=== PATIENT | female | born 1995 | race Caucasian/White ===

== ENCOUNTER 2018-01-06 18:42 | Inpatient (IN) | payer OTHER ==
[~2018-01-06] VITALS: Ht 165.1 cm; Wt 64.4 kg
[2018-01-06] MEDS ORDERED: BCPILLS PO (19:25)
[2018-01-06] MEDS ORDERED: FLUO40CA8 PO (19:25)
[2018-01-06 19:29] LABS: BASO % 0.5 %; BASO ABS # 0.02 K/uL (0-0.2); HEMATOCRIT 41.8 % (37-47); IG# 0.01 K/uL (0.00-0.02); LYMPH ABS # 1.47 K/uL (1.2-3.4); MEAN CELL VOLUME 93.1 fL (80-100); MEAN CORPUSCULAR HEMOGLOBIN 31.2 pg (25-34); MEAN CORPUSCULAR HGB CONC 33.5 g/dl (32-36); MONO % 2.9 %; MONO ABS # 0.12 K/uL (0.11-0.59); NEUT % 61.4 %; NEUT ABS # 2.58 K/uL (1.4-6.5); PLATELET COUNT 469 K/uL (130-400); RED CELL DISTRIBUTION WIDTH CV 13.1 % (11.5-14.5); RED CELL DISTRIBUTION WIDTH SD 44.6 fL (36.4-46.3)
--- NOTE | 2018-01-06 19:32 | EMERGENCY ROOM VISIT NOTE ---
History Report prepared by Jose: Maeve Ovalle Under the Supervision of: Dr. Vale León D.O. 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 The patient has a history of depression and is on Prozac. She has been under increased stress recently with her home life. She has been feeling low. Today, she drank alcohol to try to feel numb. She reports that she normally does not do this. She locked herself in the bathroom today with the intention of cutting herself. Her friends were able to open the door and stop her. They brought her to the ED. She reports that she has tried to cut herself in the past to relieve stress. She has a therapist that she sees monthly. She is on Prozac. Her Prozac dose was increased recently. She feels that the Prozac help keeps her more level. She has some cuts to her hands and knees, but does not remember falling. She denies any headache, neck pain, arm pain, hip pain, abdominal pain, leg pain, rib pain, or shoulder pain. She does not think she injured her teeth. 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 Review of Systems See HPI for pertinent positives & negatives. A total of 10 systems reviewed and were otherwise negative. Past Medical & Surgical Medical Problems: (1) Depression Family History Depression Social History Smoking Status: Never Smoker Occupation Status: [employer] student Current/Historical Medications Scheduled Control Pills ( Control Pills), 1 TAB PO DAILY Fluoxetine (Prozac), 40 MG PO DAILY Allergies Coded Allergies: Amoxicillin (Unverified Adverse Reaction, Intermediate, HIVES, 01/06/18) Penicillins (Unverified Adverse Reaction, Intermediate, HIVES, 01/06/18) Physical Exam Vital Signs Date Time Temp Pulse Resp B/P (MAP) Pulse Ox O2 Delivery O2 Flow Rate FiO2 01/06/18 23:59 100 18 119/74 99 Room Air 01/06/18 21:48 72 16 114/64 98 Room Air 01/06/18 18:47 37.0 95 16 135/96 97 Room Air Physical Exam GENERAL: alert, tearful, anxious, well nourished, no distress, non-toxic HEAD: normocephalic, atraumatic EYE EXAM: normal conjunctiva, PERRL and EOM's grossly intact OROPHARYNX: no exudate, no erythema, lips, buccal mucosa, and tongue normal and mucous membranes are moist NECK: supple, no nuchal rigidity, no adenopathy, non-tender LUNGS: Clear to auscultation. Normal chest wall mechanics HEART: no murmurs, S1 normal and S2 normal ABDOMEN: abdomen soft, non-tender, normo-active bowel sounds, no masses, no rebound or guarding. BACK: Back is symmetrical on inspection and there is no deformity, no midline tenderness, no CVA tenderness. SKIN: no rashes and no bruising UPPER EXTREMITIES: upper extremities are grossly normal. No obvious deformity, full range of motion, normal pulses. LOWER EXTREMITIES: No pitting edema. Superficial abrasions to bilateral knees. No other obvious deformity, full range of motion, normal pulses. NEURO EXAM: Normal sensorium, cranial nerves II-XII grossly intact, normal speech, no gross weakness of arms, no gross weakness of legs. PSYCH: Positive depression, positive SI. No HI. Medical Decision & Procedures Laboratory Results 01/06/18 19:06 Red Blood Count 4.49, Mean Corpuscular Volume 93.1, Mean Corpuscular Hemoglobin 31.2, Mean Corpuscular Hemoglobin Concent 33.5, Mean Platelet Volume 9.0, Neutrophils (%) (Auto) 61.4, Lymphocytes (%) (Auto) 35.0, Monocytes (%) (Auto) 2.9, Eosinophils (%) (Auto) 0.0, Basophils (%) (Auto) 0.5, Neutrophils # (Auto) 2.58, Lymphocytes # (Auto) 1.47, Monocytes # (Auto) 0.12, Eosinophils # (Auto) 0.00, Basophils # (Auto) 0.02 01/06/18 19:06 Test 01/06/18 19:06 01/06/18 19:15 White Blood Count 4.20 K/uL (4.8-10.8) Red Blood Count 4.49 M/uL (4.2-5.4) Hemoglobin 14.0 g/dL (12.0-16.0) Hematocrit 41.8 % (37-47) Mean Corpuscular Volume 93.1 fL (80-100) Mean Corpuscular Hemoglobin 31.2 pg (25-34) Mean Corpuscular Hemoglobin Concent 33.5 g/dl (32-36) Platelet Count 469 K/uL (130-400) Mean Platelet Volume 9.0 fL (7.4-10.4) Neutrophils (%) (Auto) 61.4 % Lymphocytes (%) (Auto) 35.0 % Monocytes (%) (Auto) 2.9 % Eosinophils (%) (Auto) 0.0 % Basophils (%) (Auto) 0.5 % Neutrophils # (Auto) 2.58 K/uL (1.4-6.5) Lymphocytes # (Auto) 1.47 K/uL (1.2-3.4) Monocytes # (Auto) 0.12 K/uL (0.11-0.59) Eosinophils # (Auto) 0.00 K/uL (0-0.5) Basophils # (Auto) 0.02 K/uL (0-0.2) RDW Standard Deviation 44.6 fL (36.4-46.3) RDW Coefficient of Variation 13.1 % (11.5-14.5) Immature Granulocyte % (Auto) 0.2 % Immature Granulocyte # (Auto) 0.01 K/uL (0.00-0.02) Anion Gap 10.0 mmol/L (3-11) Est Creatinine Clear Calc Drug Dose 98.9 ml/min Estimated GFR () 120.3 Estimated GFR (Non- 103.8 BUN/Creatinine Ratio 8.0 (10-20) Calcium Level 8.8 mg/dl (8.5-10.1) Total Bilirubin 0.3 mg/dl (0.2-1) Direct Bilirubin < 0.1 mg/dl (0-0.2) Aspartate Amino Transf (AST/SGOT) 19 U/L (15-37) Alanine Aminotransferase (ALT/SGPT) 16 U/L (12-78) Alkaline Phosphatase 77 U/L (45-117) Total Protein 7.9 gm/dl (6.4-8.2) Albumin 3.9 gm/dl (3.4-5.0) Thyroid Stimulating Hormone (TSH) 0.718 uIu/ml (0.300-4.500) Human Chorionic Gonadotropin, Qual NEG (NEG) Salicylates Level < 1.7 mg/dl (2.8-20) Acetaminophen Level < 2 ug/ml (10-30) Ethyl Alcohol mg/dL 238.0 mg/dl (0-3) Urine Color YELLOW Urine Appearance CLEAR (CLEAR) Urine pH 8.0 (4.5-7.5) Urine Specific Wilson 1.006 (1.000-1.030) Urine Protein NEG (NEG) Urine Glucose (UA) NEG (NEG) Urine Ketones NEG (NEG) Urine Occult Blood NEG (NEG) Urine Nitrite NEG (NEG) Urine Bilirubin NEG (NEG) Urine Urobilinogen NEG (NEG) Urine Leukocyte Esterase NEG (NEG) Urine Opiates Screen NEG (NEG) Urine Methadone, Qualitative NEG (NEG) Urine Barbiturates NEG (NEG) Urine Phencyclidine (PCP) Level NEG (NEG) Ur Amphetamine/Methamphetamine NEG (NEG) MDMA (Ecstasy) Screen NEG (NEG) Urine Benzodiazepines Screen NEG (NEG) Urine Cocaine Metabolite NEG (NEG) Urine Marijuana (THC) NEG (NEG) Laboratory results per my review. Medications Administered Medications (Trade) Dose Ordered Sig/Becca Route Start Time Stop Time Status Last Admin Dose Admin Ibuprofen (Motrin Tab) 600 mg NOW STAT PO 01/07/18 00:27 01/07/18 00:28 DC 01/07/18 00:51 600 MG Ondansetron HCl (Zofran Odt) 4 mg ONE ONCE PO 01/07/18 00:30 01/07/18 00:31 DC 01/07/18 00:32 4 MG ED Course 1850: The patient was evaluated in room B3B. A complete history and physical exam was performed. 0002: Patient seen and evaluated by psychiatric returned case inspector. He also got permission from the patient and discussed her condition with her mother. Patient agreeable to sign voluntary. 0050: Patient signed 201. Awaiting placement upstairs. Medical Decision Differential diagnoses considered include mood disorder, infection, hypoglycemia , electrolyte abnormalities, cardiac sources, intracerebral event, toxicologic, neurologic, as well as others. I do not suspect occult traumatic injury secondary to fall. It appears that in her level intoxication she fell to her hands and knees given abrasions, there is no other acute traumatic injury noted on her exam. Patient sobered up here without any other new complaints or findings suggestive of trauma. Patient did have some nausea here following evaluation with psychiatric returned case inspector and was given a dose of Zofran. I do not suspect occult traumatic head injury or concussion. Patient aware of results was agreeable with plan for additional evaluation. Signed 201. Medication Reconcilliation Current Medication List: was personally reviewed by me Blood Pressure Screening Patient's blood pressure: Normal blood pressure Blood pressure disposition: Did not require urgent referral Impression Primary Impression: Depression Additional Impressions: Suicidal ideation Alcohol intoxication Abrasion Scribe Attestation The scribe's documentation has been prepared under my direction and personally reviewed by me in its entirety. I confirm that the note above accurately reflects all work, treatment, procedures, and medical decision making performed by me. Departure Information Referrals Denise Blackwell M.D. (PCP) Patient Instructions [facility] Problem Qualifiers Primary Impression: Depression Depression Type: major depressive disorder Major depression recurrence: recurrent Active/Remission status: currently active Major depression episode severity: moderate Qualified Codes: F33.1 - Major depressive disorder, recurrent, moderate Additional Impressions: Alcohol intoxication Complication of substance-induced condition: uncomplicated Qualified Codes: F10.920 - Alcohol use, unspecified with intoxication, uncomplicated
[2018-01-06 19:48] LABS: ALBUMIN 3.9 gm/dl (3.4-5.0); ALT/SGPT 16 U/L (12-78); AST/SGOT 19 U/L (15-37); BLOOD UREA NITROGEN 7 mg/dl (7-18); CALCIUM 8.8 mg/dl (8.5-10.1); CARBON DIOXIDE 26 mmol/L (21-32); CREATININE 0.81 mg/dl (0.60-1.20); GLUCOSE 101 mg/dl (70-99); POTASSIUM 3.8 mmol/L (3.5-5.1); SODIUM 145 mmol/L (136-145)
[2018-01-06 19:58] LABS: ALKALINE PHOSPHATASE 77 U/L (45-117); TOTAL PROTEIN 7.9 gm/dl (6.4-8.2)
[2018-01-07] MEDS ORDERED: IBUPROFEN 600 MG TAB PO STA (00:27)
[2018-01-07] MEDS ORDERED: ONDANSETRON 4MG OD TAB PO ONE (00:30)
[2018-01-07] MEDS ORDERED: NURSING VERBAL MED ORDER ONE ×2 (01:15→17:30)
[2018-01-07] MEDS ORDERED: LORAZEPAM 1 MG TAB PO PRN (01:15)
[2018-01-07 02:45] VITALS: O2SAT 99
[2018-01-07] MEDS ORDERED: ALUMINUM/MAGNESIUM SUSP 30 ML UDC PO PRN (03:15)
[2018-01-07] MEDS ORDERED: ACETAMINOPHEN 325 MG TAB PO PRN (03:15)
[2018-01-07] MEDS ORDERED: MAGNESIUM HYDROXIDE SUSP 30 ML UDC PO PRN (03:15)
[2018-01-07] MEDS ORDERED: BISMUTH SUBSALICYLATE PER ML OMNICELL CHARGE PO PRN (03:15)
[2018-01-07] MEDS ORDERED: hydrOXYzine HCL 25 MG TAB PO PRN ×2 (03:15)
[2018-01-07] MEDS ORDERED: SODIUM CHLORIDE 0.65% NA SOLN 45 ML (OCEAN) PRN (03:15)
[2018-01-07 03:40] VITALS: BP 116/62; PULSE 64; TEMP 37; Ht 165.1 cm; Wt 64.4 kg
[2018-01-07] MEDS ORDERED: FLUOXETINE HCL 20 MG CAP PO SCH (09:00)
[2018-01-07 09:41] VITALS: BP 136/81; PULSE 107; TEMP 36.8
--- NOTE | 2018-01-07 19:53 | Psychiatric History & Physical ---
History Date of Service Jan 07, 2018. Identifying Data Isela Ballesteros is a 22-year-old female admitted on Jan 07, 2018 at 01:19 who currently lives in [] [alone] with []. Isela Ballesteros was admitted on a [201 voluntary] [302 involuntary] commitment. Patient is admitted from [home] [ transfer from the medical floor]. The patient was brought to the ED by the [ police] [family] [ambulance] [self transport]. Information provided by the patient is considered to be [reliable] [unreliable]. Chief Complaint "a lot of pressure from family concerns past 3 weeks". History of Present Illness Pt endorsed h/o depression that is being treated with prozac and therapy appts that has improved at times but has worsened at times recently as well.She describes concerns within her family and how she wants to address it as her main aggravating factor. her younger of two older brother has a child with a gf of his that pt does not approve of (stripper/possible substance usage). this brother and his 7 month old son is living with their mother in [facility]. The gf of brother sometimes stays at mother's place as well. Her other brother (oldest) is also living with mother currently but might be getting his own apartment in [place] area shortly. Pt takes on a caretaking role with her grown older brother's and of her mother and also wants to help with her nephew. However she does not want to have her brother's gf (mother of nephew) reside in the same house nor have to deal with her. As she has been dealing with this more directly over the past 3 weeks she has been having SI. She would imagine what it would be like on the edge of the top of one of the downtown buildings and how a plan could be to jump off (has not gone to the building itself though ) and on day of admission she was intoxicated and was considering cutting herself in the bathtub with thoughts of dying/passing out while bleeding. She expressed ambivalence in her intent when talked about to production underwriter. She had started filling the tub but did not cut herself. She had superficially cut herself as means to handle emotional tension only one week ago and this was her first and only SIB per pt report. She has been having thoughts towards using cannabis (never has) to numb self lately, and thoughts to use alcohol more to numb self as well lately She endorsed her drinking has been about 6 drinks on weekends but with some blackouts at times and rarely tremors the next day. She endorsed distress about being poor. about her mother and siblings and her having to relocate a few times over financial concerns and her younger of two brothers ADHD/behavioral concerns and h/o substance use concerns that added tensions in the house when she was growing up. She described a tendency to try to suppress her emotions but finds the emotions can breakthrough in ays that make her feel weak and causes her to struggle. She has resentments towards her family members but also aims to caretake from them while also having desires to not have to be in that role and thoughts about living far away to get away from them, She is invested in doing well in school and to build up a life that takes her away from her current stressors over time. 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 Her PCP in [place] rx's prozac She has a therapist in [place] that she has been seeing for extended time. Appts had been spread out to monthly due to distance and her previous improvement. She was struggling more in Oct. and attend a PCP appt and prozac was raised from 20mg to 40mg about 7-8 weeks ago. She felt like this was helping and her symptoms were lessening but then the past 3 weeks she has been struggling more. 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 HEr father and step mother live in [facility] and she sometimes has lunch with her father. She denied h/o hypomanic symptoms or psychotic features or eating disorder symptoms. She endorsed a past time of some compulsive turning off faucets in sets of 3, with flare ups of this behavior when more stressed ,denied other OCD symptoms denied substance usage concerns. denied HI or physical aggressive behaviors Past Medical/Surgical History History of Concussion/Seizure: No (1) Depression Allergies Allergies: Coded Allergies: Amoxicillin (Unverified Adverse Reaction, Intermediate, HIVES, 01/06/18) Penicillins (Unverified Adverse Reaction, Intermediate, HIVES, 01/06/18) Home Medications Scheduled Control Pills ( Control Pills), 1 TAB PO DAILY Fluoxetine (Prozac), 40 MG PO DAILY Family History Depression History of Suicide: No History of Substance Abuse: Yes (mother's side) Psychiatric History: Yes (anxiety and depression mother and brother) Alcohol Use Alcohol Use In Past 12 Months: Yes ("Occassional with friends, and/or monday/monday) AUDIT Total Score: 5 as per HPI Smoking Use Smoking Status: Never Smoker Substance History denied Personal History Education: other (completing third year of [employer] ) Relationship History: never Children: none Legal History: none Psychological Trauma History: Other (as per HPI ) Review of Systems Constitutional: no symptoms reported Eyes: reports: no symptoms ENT: reports: no symptoms reported Cardiovascular: reports: no symptoms reported Respiratory: reports: no symptoms reported Gastrointestinal: no symptoms reported Genitourinary - Female: reports: no symptoms Musculoskeletal: no symptoms reported Integumentary: other (recent superficial self cut as per hpi ) Neurologic: reports: no symptoms Endocrine: no symptoms Hematologic / Lymphatic: no symptoms Examination Physical Examination A physical exam was performed [in the ER] [on the medical floor] prior to admission to the unit by [ ]. I accept that physical as correct/medical clearance for the inpatient physical exam. Vital Signs Vital Signs Past 12 Hours Date Time Temp Pulse Resp B/P (MAP) Pulse Ox O2 Delivery O2 Flow Rate FiO2 01/07/18 09:41 36.8 107 17 136/81 Mental Examination During interview pt is: alert and oriented, cooperative Appearance: appropriately dressed, appropriately groomed Eye contact is: good Motor behavior is: steady gait & station, no abnormal motor movements Speech: normal in rate, rhythm & volume Affect: mood congruent Mood is: depressed Thought process: goal directed, linear, logical, clear, coherent Thought content: other (conflictual tensions about sense of roles/ responsbilities towards family) Suicidal thought are: present, Plan: present, Intent: denied Homicidal thoughts are: denied Hallucinations: denies auditory, denies visual Cognition: memory grossly intact, attention grossly intact Intelligence estimated to be: above average Insight: fair Judgement: impaired Impression / Recommendations Impression 22 yr old major depressive disorder worsening symptoms as dealing with stressors with family, as approaching end of and preparing for summer plans, prozac raised to 40mg from 20mg about 2 months ago, with positive symptoms noted. first SIB 1 week ago, increasing SI with consideration of self cutting in bathtub aiming to bleed out with pt running the bathtub as far as she got. Alcohol use strong enough to lead to black out at times, with pt aiming to numb self. suppressed her feelings and feels torn about her care taking role. aiming to not have to deal with bother's gf but not sure if will need ot live in same house as mother with this woman likely to be there at least at times, older brother might move out shortly with pt might staying with him instead. therapist local to that area and pt aims to continue to see 7 month old nephew of pt pt;s mother helping with caretaking of this child no information given that shows acute concerns for Child's basic welfare. Inventory Assets Strengths: concern for others, seeking care, future plans Needs: individualization/differentiation from family, clarification of housing situation that would work for her Risk Factors Assessment : Yes /single/: Yes Access to guns: No Mental Health Diagnoses: Yes Substance use disorders: No Previous attempt: No Family history of suicide: No Hopelessness: No Smoker: No Protective Factors Assessment Employed: No Recommendations (1) Depression -coordination with outpt therapist and PCP, consideration of being followed by psychiatrist as outpt, increasing therapy to weekly -considered with pt raising prozac to 60mg qday but pt prefers to maintain at 40mg qday given responses noticed in first weeks to raise of dose and how aggravating factor is tied to psychosocial stressors, addressed pt weariness of dose increases with aiming to keep open mind of possible future dose raise depending on presentation individual and group therapy while on unit social sciences professor - including to address academic concerns including a test on family meeting with mother scheduled CPT Code Initial Hospital Care: [id number] Problem Qualifiers (1) Depression: Depression Type: major depressive disorder Major depression recurrence: recurrent Active/Remission status: currently active Major depression episode severity: moderate Qualified Codes: F33.1 - Major depressive disorder, recurrent, moderate
[2018-01-08 06:59] VITALS: BP_SYST 113; BP_SYST 116; BP_DIAS 77; BP_DIAS 81; PULSE 70; PULSE 86; TEMP 36.5
--- NOTE | 2018-01-08 10:36 | Psychiatric Progress Notes ---
Progress Note Date of Service Jan 08, 2018. 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 Her friends were able to open the door and stomp her, brought her to the emergency room, and she was admitted voluntarily. Chief Complaint "I just feel more alone ". Subjective Patient was seen & assessed interval progress reviewed with Treatment Team. Staff report she has not been engaging in treatment, declining groups, and appears very depressed. Her affect brightened when friends visited. On my assessment today, she states that she feels more alone in the hospital, as "I do not have anyone here, no way to distract myself." She describes her mood as "just stressed," and rates it a 4 out of 10. She is worried about missing schoolwork and her family stresses, and says that being in the hospital "just opens a whole new bag of worms." She denies suicidal thoughts here, but admits that she is overwhelmed when thinking about leaving the hospital, and does not know how she will cope with going back home to her mother's house in 2 weeks. She describes the home as too small and chaotic, with not enough space for all the people staying there and a lot of resentment, especially of her brother and his girlfriend, as they do not care for her nephew. She states that she blames her mother and her brother for her current situation, and for creating an unhealthy family situation. She says she is often expected to be responsible for her nephew and feels that she is expected to be "the strong one" in the family. 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 She is able to list things that she knows help her when she is feeling down or overwhelmed, and notes that she tends to isolate when feeling poorly. She says she is "not strong enough to do it on my own, I did not realize I was this bad until everything happened." She endorses anger, is upset that her friends will "treat me like I am fragile now." She states there are no other options for places for her to live over the summer, as she has no friends in the [place] area, and does not have the finances to get her own place. 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 thing for her, as "I like to be distracted from my issues by looking at other people's." Sleep Information Total Hours of Sleep: 8.75 Meal Information Percent of Breakfast Consumed: 100 Percent of Lunch Consumed: 60 Percent of Dinner Consumed: 75 Mental Status Exam During interview pt is: alert and oriented, cooperative Appearance: appropriately dressed, appropriately groomed Eye contact is: poor Motor behavior is: steady gait & station, no abnormal motor movements Speech: normal in rate, rhythm & volume (Angry tone at times) Affect: mood congruent, depressed, tearful, irritable, angry Mood is: depressed Thought process: goal directed, linear, logical, clear, coherent Thought content: cognitive distortions Suicidal thought are: denied Homicidal thoughts are: denied Hallucinations: denies auditory, denies visual Cognition: memory grossly intact, attention grossly intact Intelligence estimated to be: above average Insight: fair Judgement: impaired Impression 22 year old female [employer] student from [place] with major depressive disorder, exacerbated by family stress as she approaches the end of semester, with 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 She had been cutting, and locked herself in the bathroom, telling roommate she was going to cut her wrists in the bathtub to end her life. She has a lot of anger at her mother and brother for the family dysfunction and amount of responsibility that has been placed on her, and notes she tends to isolate and keep things in when feeling overwhelmed. She has a family meeting with her mother today, and was continued on fluoxetine 40 mg daily, which had just been increased by her PCP. She requires inpatient treatment due to the severity of her depressive symptoms and the risk for continued self-harm and suicide if discharged. Plan (1) Depression -coordination with outpt therapist and PCP, consideration of being followed by psychiatrist as outpt, increasing therapy to weekly -considered with pt raising prozac to 60mg qday but pt prefers to maintain at 40mg qday given responses noticed in first weeks to raise of dose and how aggravating factor is tied to psychosocial stressors, addressed pt weariness of dose increases with aiming to keep open mind of possible future dose raise depending on presentation individual and group therapy while on unit social worker aide - including to address academic concerns including a test on family meeting with mother scheduled 01/08 -Family meeting with mother today. Encouraged patient to explore ways to limit stress while staying with her mother, she states there are no other housing options for her. -Continue fluoxetine 40 mg daily, and coordinate care with PCP, Dr. Maribel Han, in [place]. -Coordinate care with a therapist in [place], and schedule follow-up appointment. Refer for outpatient psychiatric care. -Encouraged the patient to attend groups, participate in treatment, work on healthy coping skills and a discharge safety plan. Discharge / Aftercare Planning Primary Care Physician: Name: Dr Maribel Hurst Therapist: Name: Carlos Everett Date of Appointment: January 24, 2018 It Help Desk Technician: Name: Lori Visit Code E&M Code: 28331 Inventory Assets Strengths: concern for others, seeking care, future plans Needs: individualization/differentiation from family, clarification of housing situation that would work for her Risk Factors Assessment : Yes /single/: Yes Higher / Fall in social status: No Health problems: No Mental Health Diagnoses: Yes Substance use disorders: No Previous attempt: No Family history of suicide: No Previous psychiatric stay: No ( ) Hopelessness: No Smoker: No Protective Factors Assessment : No Responsible for young children: No Employed: No Stable relationships: No Supportive family: Yes Good rapport with provider: Yes (with therapist at home, but no psychiatrist) Data Vital Signs Last 24 Hrs: Date Time Temp Pulse Resp B/P (MAP) Pulse Ox O2 Delivery O2 Flow Rate FiO2 01/08/18 06:59 36.5 70 16 113/77 86 116/81 Meds Administered Last 24 Hrs: Meds Administered (Past 24Hrs) Medications (Trade) Dose Ordered Sig/Becca Route Start Time Stop Time Status Last Admin Dose Admin Ibuprofen (Motrin Tab) 600 mg NOW STAT PO 01/07/18 00:27 01/07/18 00:28 DC 01/07/18 00:51 600 MG Ondansetron HCl (Zofran Odt) 4 mg ONE ONCE PO 01/07/18 00:30 01/07/18 00:31 DC 01/07/18 00:32 4 MG Fluoxetine HCl (Prozac Cap) 40 mg QAM PO 01/07/18 09:00 01/07/18 17:07 DC 01/07/18 09:03 40 MG Problem Qualifiers (1) Depression: Depression Type: major depressive disorder Major depression recurrence: recurrent Active/Remission status: currently active Major depression episode severity: moderate Qualified Codes: F33.1 - Major depressive disorder, recurrent, moderate
[2018-01-08] MEDS: FLUOXETINE HCL 20 MG CAP PO SCH (21:35)
[2018-01-09 06:51] VITALS: BP_SYST 123; BP_DIAS 82; BP_DIAS 85; PULSE 67; PULSE 83; TEMP 36.8
--- NOTE | 2018-01-09 13:39 | Psychiatric Progress Notes ---
Progress Note Date of Service Jan 09, 2018. Interval History Isela, who goes by Liane, is a 22-year-old single female [employer] student from the [facility] who has a history of depression treated by her PCP and presented to the emergency room after she walked herself in the bathroom and endorsed suicidal thoughts with a plan to cut her wrists in the bathtub. Her friends were able to open the door and stomp her, brought her to the emergency room, and she was admitted voluntarily. Chief Complaint "Better ". Subjective Patient was seen & assessed interval progress reviewed with Nursing. Staff report she had a difficult family meeting with her mother yesterday, during which she was frustrated and had difficulty identifying ways that her mother could help. She refers to be self-sufficient, but is unable to do that, and has difficulty dealing with the level of dysfunction and chaos in her mother's home. She talked about her anger at her mother, and the various stresses within the family. She also discussed her hopes to get an apartment with her older brother, and her mother stated that the patient's brother would like to talk to her about was inconsistent in her response to this, and then said she needed time to think about it. This, but she acted on interested, repeatedly saying "it does not matter." She also said she did not want to be involved with picking a place to live. Her mother was going to look into options for a psychiatrist in the [facility]. 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 She talked about her school stress, she is behind in some of her classes, as well as financial strain. She was tearful and appeared hopeless during the meeting, and there was no resolution to the question of where she would live and if she would stay locally or go back to [place] over the summer. 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 She denies suicidal thoughts, and says sleep was okay, but mood remains low, rates it a 4-5 out of 10, and states she is "not more hopeful, just a little bit better." She is hopeful to be able to be discharged later this week, and is thinking about going to her father's house this weekend to study and avoiding the [place], as she knows everyone will be drinking. She recognizes that "drinking's a trigger for me," and that she should avoid it. She wants to continue on her current dose of antidepressant, and says she was planning on following up with her PCP in February. Advised we'd recommend a follow up appointment with her physician (preferably a psychiatrist) within 1-2 weeks of discharge. Sleep Information Total Hours of Sleep: 6.50 Meal Information Percent of Breakfast Consumed: 100 Percent of Lunch Consumed: 75 Percent of Dinner Consumed: 60 Mental Status Exam During interview pt is: alert and oriented, cooperative Appearance: appropriately dressed, disheveled (hair messy, unkempt) Eye contact is: poor Motor behavior is: steady gait & station, no abnormal motor movements Speech: normal in rate, rhythm & volume Affect: mood congruent, depressed (but brighter, more reactive) Mood is: other ("better") Thought process: goal directed, linear, logical, clear, coherent Thought content: cognitive distortions Suicidal thought are: denied Homicidal thoughts are: denied Hallucinations: denies auditory, denies visual Cognition: memory grossly intact, attention grossly intact Intelligence estimated to be: above average Insight: fair Judgement: impaired Impression 22 year old female [employer] student from [place] with major depressive disorder, exacerbated by family stress as she approaches the end of semester, with 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 She had been cutting, and locked herself in the bathroom, telling roommate she was going to cut her wrists in the bathtub to end her life. She has a lot of anger at her mother and brother for the family dysfunction and amount of responsibility that has been placed on her, and notes she tends to isolate and keep things in when feeling overwhelmed. She has a family meeting with her mother today, and was continued on fluoxetine 40 mg daily, which had just been increased by her PCP. She requires inpatient treatment due to the severity of her depressive symptoms and the risk for continued self-harm and suicide if discharged. Plan (1) Depression -coordination with outpt therapist and PCP, consideration of being followed by psychiatrist as outpt, increasing therapy to weekly -considered with pt raising prozac to 60mg qday but pt prefers to maintain at 40mg qday given responses noticed in first weeks to raise of dose and how aggravating factor is tied to psychosocial stressors, addressed pt weariness of dose increases with aiming to keep open mind of possible future dose raise depending on presentation individual and group therapy while on unit social media manager - including to address academic concerns including a test on family meeting with mother scheduled 01/08 -Family meeting with mother today. Encouraged patient to explore ways to limit stress while staying with her mother, she states there are no other housing options for her. -Continue fluoxetine 40 mg daily, and coordinate care with PCP, Dr. Maribel Han, in [place]. -Coordinate care with a therapist in [place], and schedule follow-up appointment. Refer for outpatient psychiatric care. -Encouraged the patient to attend groups, participate in treatment, work on healthy coping skills and a discharge safety plan. Discharge / Aftercare Planning Primary Care Physician: Name: Dr Maribel Hurst Therapist: Name: Carlos Everett Date of Appointment: January 24, 2018 [employer] Cafeter[employer] Cook: Name: Lori Visit Code E&M Code: 65066 Inventory Assets Strengths: concern for others, seeking care, future plans Needs: individualization/differentiation from family, clarification of housing situation that would work for her Risk Factors Assessment : Yes /single/: Yes Higher / Fall in social status: No Health problems: No Mental Health Diagnoses: Yes Substance use disorders: No Previous attempt: No Family history of suicide: No Previous psychiatric stay: No ( ) Hopelessness: No Smoker: No Protective Factors Assessment : No Responsible for young children: No Employed: No Stable relationships: No Supportive family: Yes Good rapport with provider: Yes (with therapist at home, but no psychiatrist) Data Vital Signs Last 24 Hrs: Date Time Temp Pulse Resp B/P (MAP) Pulse Ox O2 Delivery O2 Flow Rate FiO2 01/09/18 06:51 36.8 67 16 123/82 83 123/85 Meds Administered Last 24 Hrs: Meds Administered (Past 24Hrs) Medications (Trade) Dose Ordered Sig/Becca Route Start Time Stop Time Status Last Admin Dose Admin Fluoxetine HCl (Prozac Cap) 40 mg HS PO 01/08/18 22:00 02/06/18 08:59 01/08/18 21:35 40 MG Problem Qualifiers (1) Depression: Depression Type: major depressive disorder Major depression recurrence: recurrent Active/Remission status: currently active Major depression episode severity: moderate Qualified Codes: F33.1 - Major depressive disorder, recurrent, moderate
[2018-01-09] MEDS: FLUOXETINE HCL 20 MG CAP PO SCH (21:59)
[2018-01-10 07:00] VITALS: BP_SYST 118; BP_SYST 120; BP_DIAS 83; BP_DIAS 87; PULSE 68; PULSE 93; TEMP 36.8
--- NOTE | 2018-01-10 12:26 | Discharge Instructions ---
Discharge Information Report Includes Report will include the: Discharge Instructions & Summary Admission Admission Date / Time: Jan 07, 2018 at 01:19 Reason for Admission: Depression Discharge Discharge Diagnosis / Problem: Depression Condition at Discharge: Good Discharge Goals Goal(s): Decrease discomfort, Improve disease control Activity Recommendations Activity Limitations: resume your previous activity . Instructions / Follow-Up Instructions / Follow-Up . SPECIAL CARE INSTRUCTIONS: 1. Follow through with your scheduled aftercare appointments. If unable to keep an appointment, please call to reschedule. 2. Take your medication only as prescribed. Medication should not be changed or stopped without the approval of your doctor. In the event of worsening symptoms or concerns about side effects, contact your doctor immediately. 3. Utilize new healthy coping skills, anger management skills, and stress management skills learned during your hospitalization. Journal feelings and process them with a support person. Identify stressors or situations that may result in relapse, deterioration or inappropriate behaviors and develop a plan to deal with those issues. 4. If your coping skills are ineffective and you are in crisis, contact your outpatient providers for direction. If unable to reach your providers, please call the CAN HELP LINE AT or go to the closest Emergency Room. 5. Avoid alcohol and un-prescribed drugs. 6. You have been provided with the Mental Health Advance Directives Pamphlet for your review. AFTERCARE APPOINTMENTS: * Please call your insurance company prior to your scheduled appointment to confirm your aftercare providers are covered. Take your insurance information to your appointments. . Discharge / Aftercare Planning Primary Care Physician: Name: Dr Maribel Hurst Date of Appointment: January 29, 2018 Time of Appointment: 8:40 Therapist: Name Of Therapist: Carlos Everett Date of Appointment: January 24, 2018 Time of Appointment: 1pm Shotblast Equipment Operator: Name: Lori Other: Name of Appointment #1: [employer] [facility] Date of Appointment #1: Jan 12, 2018 Time of Appointment #1: 11am . Follow-Up Care Plan for Follow-Up Care: The patient will see her therapist on January 24 Current Hospital Diet Patient's current hospital diet: Regular Diet Discharge Diet Recommended Diet: Regular Diet Procedures Procedures Performed: No Pending Studies Pending Studies at Discharge: No Medical Emergencies . Who to Call and When: Medical Emergencies: For questions or emergencies related to your hospital stay, please contact the Inpatient Behavioral Health Unit at [phone]. A professor of surgery is on-call 17/04 for the Behavioral Health Unit for emergencies At any time you feel your situation is an emergency, you may also call 911 immediately. . Non-Emergent Contact Non-Emergency issues call your: Therapist Advance Directives Existing Advance Directive: No Do You Have an Existing Mental: No Existing Living Will: No Existing Power of Cook Boat: No Advance Directives Info Given: To Pt/S.O. Advance Directives Reason: Declines as Mental Health Visit. Discharge Summary Admission HPI Per the Admitting provider: Pt endorsed h/o depression that is being treated with prozac and therapy appts that has improved at times but has worsened at times recently as well.She describes concerns within her family and how she wants to address it as her main aggravating factor. her younger of two older brother has a child with a gf of his that pt does not approve of (stripper/possible substance usage). this brother and his 7 month old son is living with their mother in [facility]. The gf of brother sometimes stays at mother's place as well. Her other brother (oldest) is also living with mother currently but might be getting his own apartment in [place] area shortly. Pt takes on a caretaking role with her grown older brother's and of her mother and also wants to help with her nephew. However she does not want to have her brother's gf (mother of nephew) reside in the same house nor have to deal with her. As she has been dealing with this more directly over the past 3 weeks she has been having SI. She would imagine what it would be like on the edge of the top of one of the downtown buildings and how a plan could be to jump off (has not gone to the building itself though ) and on day of admission she was intoxicated and was considering cutting herself in the bathtub with thoughts of dying/passing out while bleeding. She expressed ambivalence in her intent when talked about to chart writer. She had started filling the tub but did not cut herself. She had superficially cut herself as means to handle emotional tension only one week ago and this was her first and only SIB per pt report. She has been having thoughts towards using cannabis (never has) to numb self lately, and thoughts to use alcohol more to numb self as well lately She endorsed her drinking has been about 6 drinks on weekends but with some blackouts at times and rarely tremors the next day. She endorsed distress about being poor. about her mother and siblings and her having to relocate a few times over financial concerns and her younger of two brothers ADHD/behavioral concerns and h/o substance use concerns that added tensions in the house when she was growing up. She described a tendency to try to suppress her emotions but finds the emotions can breakthrough in ays that make her feel weak and causes her to struggle. She has resentments towards her family members but also aims to caretake from them while also having desires to not have to be in that role and thoughts about living far away to get away from them, She is invested in doing well in school and to build up a life that takes her away from her current stressors over time. She has plans to attend an management internship and attend classes during summer locally to [facility]. Her PCP in [place] rx's prozac She has a therapist in [place] that she has been seeing for extended time. Appts had been spread out to monthly due to distance and her previous improvement. She was struggling more in Oct. and attend a PCP appt and prozac was raised from 20mg to 40mg about 7-8 weeks ago. She felt like this was helping and her symptoms were lessening but then the past 3 weeks she has been struggling more. She has an appt with her therapist on January 24, with her finishing her semester in [employer] the day before. HEr father and step mother live in [place] area and she sometimes has lunch with her father. She denied h/o hypomanic symptoms or psychotic features or eating disorder symptoms. She endorsed a past time of some compulsive turning off faucets in sets of 3, with flare ups of this behavior when more stressed ,denied other OCD symptoms denied substance usage concerns. denied HI or physical aggressive behaviors Hospital Course (1) Depression -coordination with outpt therapist and PCP, consideration of being followed by psychiatrist as outpt, increasing therapy to weekly -considered with pt raising prozac to 60mg qday but pt prefers to maintain at 40mg qday given responses noticed in first weeks to raise of dose and how aggravating factor is tied to psychosocial stressors, addressed pt weariness of dose increases with aiming to keep open mind of possible future dose raise depending on presentation individual and group therapy while on unit social work nurse - including to address academic concerns including a test on family meeting with mother scheduled 01/08 -Family meeting with mother today. Encouraged patient to explore ways to limit stress while staying with her mother, she states there are no other housing options for her. -Continue fluoxetine 40 mg daily, and coordinate care with PCP, Dr. Maribel Han, in [place]. -Coordinate care with a therapist in [place], and schedule follow-up appointment. Refer for outpatient psychiatric care. -Encouraged the patient to attend groups, participate in treatment, work on healthy coping skills and a discharge safety plan. Risk Factors Assessment : Yes /single/: Yes Higher / Fall in social status: No Health problems: No Mental Health Diagnoses: Yes Substance use disorders: No Previous attempt: No Family history of suicide: No Previous psychiatric stay: No ( ) Hopelessness: No Smoker: No Protective Factors Assessment : No Responsible for young children: No Employed: No Stable relationships: No Supportive family: Yes Good rapport with provider: Yes (with therapist at home, but no psychiatrist) Day of Discharge Assessment COURSE OF HOSPITALIZATION: The patient has been on her unit for 3 days. She was admitted voluntarily with worsening depression in the setting of family discord. Apparently her biological family lives in a very small house with only 2 bedrooms yet there is she, her mother, her 2 brothers and her one brother 's child. She does not approve of that brother's girlfriend with whom he had the child and feels stressed about it every time she comes to the home and feels the need to be vocal about it. 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 She admits that she generally does not reach out for help and wants to deal with things on her own. During her stay Prozac 40 mg was continued as she thought this is been helpful to her over time. Family meeting was held with her mother who was supportive of the patient living with her older brother Ivan due to the chaos at home. Mother also Offered to be helpful in finding a psychiatric provider at home in the [facility]. The patient was somewhat resistant to some aspects of treatment including having a family meeting with her roommates. She was worried about missing the end of the semester while she is in school as she missed for microbiology labs this week alone. Her plan is to return to school to finish the semester that will and in just over a week. She plans to stay with her father locally until she is able to go home in the first few days of January 24 her mother's home in [place]. She has worked on a safety plan that also includes reaching out to people rather than keeping her problems to herself. She also plans to get a part-time job to provide herself structure for the summer. She denied suicidal thinking during her stay. She was cooperative with group and individual therapy. She acknowledges that alcohol is been a problem for her, drinking to excess for the wrong reasons and plans to abstain at discharge which is what is recommended. TRANSITION OF CARE: I have personally reviewed the patient's aftercare appointments and medications. She has been counseled not to cancel her appointments and not to adjust medications without first consulting her provider. DAY OF DISCHARGE ASSESSMENT: Today the patient is requesting discharge. She feels improved over admission. She recognizes now that she was not in good shape prior to admission and was glad to have this time in the hospital to focus on herself. She feels good about her safety plan and her plan to finish the semester. She has a counseling appointment on January 24 at home in the [facility]. Today the patient is casually and appropriately dressed and groomed. Gait and station are within normal limits. Eye contact is good. Affect is blunted but able to smile. Speech is of normal rate volume and tone. Thoughts are organized, goal-directed, and without evidence of thought disorder. Recent and remote memory are intact per conversation. Intelligence is estimated to be average. Insight and judgment are improved over admission. Laboratory Test 01/06/18 19:06 01/06/18 19:15 White Blood Count 4.20 Red Blood Count 4.49 Hemoglobin 14.0 Hematocrit 41.8 Mean Corpuscular Volume 93.1 Mean Corpuscular Hemoglobin 31.2 Mean Corpuscular Hemoglobin Concent 33.5 Platelet Count 469 Mean Platelet Volume 9.0 Neutrophils (%) (Auto) 61.4 Lymphocytes (%) (Auto) 35.0 Monocytes (%) (Auto) 2.9 Eosinophils (%) (Auto) 0.0 Basophils (%) (Auto) 0.5 Neutrophils # (Auto) 2.58 Lymphocytes # (Auto) 1.47 Monocytes # (Auto) 0.12 Eosinophils # (Auto) 0.00 Basophils # (Auto) 0.02 RDW Standard Deviation 44.6 RDW Coefficient of Variation 13.1 Immature Granulocyte % (Auto) 0.2 Immature Granulocyte # (Auto) 0.01 Sodium Level 145 Potassium Level 3.8 Chloride Level 108 Carbon Dioxide Level 26 Anion Gap 10.0 Blood Urea Nitrogen 7 Creatinine 0.81 Est Creatinine Clear Calc Drug Dose 98.9 Estimated GFR () 120.3 Estimated GFR (Non- 103.8 BUN/Creatinine Ratio 8.0 Random Glucose 101 Calcium Level 8.8 Total Bilirubin 0.3 Direct Bilirubin < 0.1 Aspartate Amino Transferase (AST) 19 Alanine Aminotransferase (ALT) 16 Alkaline Phosphatase 77 Total Protein 7.9 Albumin 3.9 Thyroid Stimulating Hormone (TSH) 0.718 Human Chorionic Gonadotropin, Qual NEG Salicylates Level < 1.7 Acetaminophen Level < 2 Ethyl Alcohol mg/dL 238.0 Urine Color YELLOW Urine Appearance CLEAR Urine pH 8.0 Urine Specific [place] 1.006 Urine Protein NEG Urine Glucose (UA) NEG Urine Ketones NEG Urine Occult Blood NEG Urine Nitrite NEG Urine Bilirubin NEG Urine Urobilinogen NEG Urine Leukocyte Esterase NEG Urine Opiates Screen NEG Urine Methadone, Qualitative NEG Urine Barbiturates NEG Urine Phencyclidine (PCP) Level NEG Ur Amphetamine/Methamphetamine NEG MDMA (Ecstasy) Screen NEG Urine Benzodiazepines Screen NEG Urine Cocaine Metabolite NEG Urine Marijuana (THC) NEG Total Time Total Time Spent (min): Greater than 30 minutes Total Time Included: examination of the patient, discharge planning, medication reconciliation, communication with other providers Tobacco Cessation at Discharge Smoking Status: Never Smoker FDA approved Prescription: non-smoker Problem Qualifiers (1) Depression: Depression Type: major depressive disorder Major depression recurrence: recurrent Active/Remission status: currently active Major depression episode severity: moderate Qualified Codes: F33.1 - Major depressive disorder, recurrent, moderate
== END 2018-01-10 13:10 | disposition home or self-care (01) | DRG 885 ==
LOC: EDBD 18:42 → C.EDB 18:46 → C.MHU 01-07 01:19
PROVIDERS: ADMIT Psychiatry & Neurology Psychiatry; ATTEND Psychiatry & Neurology Psychiatry
DX: F33.1 Major depressive disorder, recurrent, moderate (principal); R45.851 Suicidal ideations; F10.129 Alcohol abuse with intoxication, unspecified; Y90.7 Blood alcohol level of 200-239 mg/100 ml; S60.512A Abrasion of left hand, initial encounter; S60.511A Abrasion of right hand, initial encounter; S80.212A Abrasion, left knee, initial encounter; S80.211A Abrasion, right knee, initial encounter; W19.XXXA Unspecified fall, initial encounter; Z91.5 Personal history of self-harm; Z63.8 Other specified problems related to primary support group; Z81.8 Family history of other mental and behavioral disorders; Z81.3 Family history of other psychoactive substance abuse and dependence; Z79.3 Long term (current) use of hormonal contraceptives; Z79.899 Other long term (current) drug therapy; Z88.0 Allergy status to penicillin